=== PATIENT | female | born 1985 | race Caucasian/White ===

== ENCOUNTER 2017-07-23 12:12 | Observation (INO) | payer SELFPAY ==
[2017-07-23 12:15] VITALS: O2SAT 100
--- NOTE | 2017-07-23 12:34 | ED PDOC ---
HPI: Abdomen Time Seen by Provider: 07/23/17 12:19 Chief Complaint (Nursing): Abdominal Pain Chief Complaint (Provider): Abdominal Pain History Per: Patient History/Exam Limitations: no limitations Current Symptoms Are (Timing): Still Present Additional Complaint(s): 32 y/o female presents to the emergency department with a complaint of a lower right-sided abdominal pain with nausea and vomiting since yesterday, 2016. Last menstrual period was 23 days ago. Denies diarrhea, or any urinary symptoms. Past Medical History Reviewed: Historical Data, Nursing Documentation, Vital Signs Vital Signs: Last Vital Signs Temp 96.7 F L 07/23/17 12:13 Pulse 68 07/23/17 12:13 Resp 18 07/23/17 12:13 BP 133/88 07/23/17 12:13 Pulse Ox 100 07/23/17 12:35 - Medical History PMH: Hyperthyroidism, Hypothyroidism - Surgical History Other surgeries: thyroidectomy - Family History Family History: States: Unknown Family Hx - Social History Current smoker - smoking cessation education provided: No Alcohol: None Drugs: Denies - Allergies Allergies/Adverse Reactions: Allergies Allergy/AdvReac Type Severity Reaction Status Date / Time nickel Allergy RASH Verified 07/23/17 12:13 Review of Systems ROS Statement: Except As Marked, All Systems Reviewed And Found Negative Gastrointestinal: Positive for: Nausea, Vomiting, Abdominal Pain. Negative for : Diarrhea Genitourinary Female: Negative for: Dysuria, Frequency, Incontinence, Hematuria Physical Exam - Reviewed Nursing Documentation Reviewed: Yes Vital Signs Reviewed: Yes - Physical Exam Appears: Positive for: Non-toxic, No Acute Distress Head Exam: Positive for: NORMAL INSPECTION, NORMOCEPHALIC Skin: Positive for: Normal Color, Warm, Dry Gastrointestinal/Abdominal: Positive for: Bowel Sounds, Soft, Tenderness (Mild RLQ ). Negative for: Normal Exam, Rebound Neurologic/Psych: Positive for: Alert, Oriented (x3) - Laboratory Results Result Diagrams: 07/23/17 12:35 07/23/17 12:35 - ECG O2 Sat by Pulse Oximetry: 100 (RA) Pulse Ox Interpretation: Normal Medical Decision Making Medical Decision Making: Time:12:27 Initial Impression: Abdominal pain Initial Plan: --Abd & Pelvis IV Contrast CT --CMP --Urine DIP & Preg --CBC w. diff --Reevaluation Scribe Attestation: Documented by Nikki Martinez, acting as a scribe for Brian Johnson MD. Provider Scribe Attestation: All medical record entries made by the Scribe were at my direction and personally dictated by me. I have reviewed the chart and agree that the record accurately reflects my personal performance of the history, physical exam, medical decision making, and the department course for this patient. I have also personally directed, reviewed, and agree with the discharge instructions and disposition. ED OBSERVATION Date of observation admission: 07/23/17 Time of observation admission: 13:00 - Observation admission statement Patient is being placed in observation because:: Abd pain Disposition - Clinical Impression Clinical Impression: Abdominal pain - Patient ED Disposition Is Patient to be Admitted: Transfer of Care - Disposition Disposition: Transfer of Care Disposition Time: 14:59 Condition: FAIR Forms: [facility] (I[place]ic) Patient Signed Over To: Maylin Centeno
[2017-07-23 12:45] LABS: BASO % 0.3 % (0.0-2.0); EOS # 0.2 K/uL (0.0-0.7); EOS % 3.3 % (0.0-4.0); HEMATOCRIT 42.3 % (34.0-47.0); LYMPH # 1.5 K/uL (1.0-4.3); MEAN CELL VOLUME 93.1 fl (81.0-99.0); MEAN CORPUSCULAR HEMOGLOBIN 30.9 pg (27.0-31.0); MEAN CORPUSCULAR HGB CONC 33.2 g/dL (33.0-37.0); MEAN PLATELET VOLUME 9.4 fl (7.2-11.7); MONO # 0.6 K/uL (0.0-0.8); MONO % 8.3 % (0.0-10.0); NEUT # 4.9 K/uL (1.8-7.0); NEUT % 67.1 % (50.0-75.0); WHITE BLOOD COUNT 7.3 K/uL (4.8-10.8)
[2017-07-23 13:08] LABS: ALB/GLOB RATIO 1.4 (1.0-2.1); ALKALINE PHOSPHATASE 47 U/L (38-126); ALT/SGPT 30 U/L (9-52); AST/SGOT 25 U/L (14-36); BILIRUBIN,TOTAL 0.8 mg/dl (0.2-1.3); BLOOD UREA NITROGEN 11 mg/dl (7-17); CALCIUM 9.6 mg/dL (8.4-10.2); CARBON DIOXIDE 28 mmol/L (22-30); CHLORIDE 103 mmol/L (98-107); GFR AFRICAN-AMERICAN > 60; GLUCOSE,RANDOM 94 mg/dL (65-105); POTASSIUM 4.1 MMOL/L (3.6-5.0); SODIUM 144 mmol/l (132-148); TOTAL PROTEIN 7.8 G/DL (6.3-8.2)
[2017-07-23] MEDS ORDERED: Sodium Chloride 0.9% 50 ML IV ONE (13:25)
[2017-07-23] MEDS ORDERED: Iohexol 300 100 ML IJ ONE (13:25)
--- NOTE | 2017-07-23 14:11 | CT ---
PROCEDURE: CT Abdomen and Pelvis with contrast HISTORY: RLQ pain COMPARISON: None. TECHNIQUE: Contrast dose: Omnipaque 300, 95 cc Radiation dose: Total exam DLP = mGy-cm. This CT exam was performed using one or more of the following dose reduction techniques: Automated exposure control, adjustment of the mA and/or kV according to patient size, and/or use of iterative reconstruction technique. FINDINGS: LOWER THORAX: Unremarkable. LIVER: Questionable diffuse fatty infiltration however the enhancement pattern is early arteriovenous limiting the evaluation somewhat. . No gross lesion or ductal dilatation. GALLBLADDER AND BILE DUCTS: Unremarkable. PANCREAS: Unremarkable. No gross lesion or ductal dilatation. SPLEEN: Unremarkable. ADRENALS: Unremarkable. No mass. KIDNEYS AND URETERS: Unremarkable. No hydronephrosis. No solid mass. VASCULATURE: Unremarkable. No aortic aneurysm. BOWEL: Unremarkable. No obstruction. No gross mural thickening. APPENDIX: The appendix is not identified. Into the lack of intraperitoneal fat in this patient and the lack of oral contrast administration, there is difficult to exclude potential appendicitis. PERITONEUM: Unremarkable. No free fluid. No free air. LYMPH NODES: Unremarkable. No enlarged lymph nodes. BLADDER: Unremarkable. REPRODUCTIVE: A lucent lesion is seen at the right side of the uterine fundus measuring 2.8 x 2.7 cm with trace fluid seen in the cul-de-sac and the dependent right adnexal compartment. BONES: No acute fracture. OTHER FINDINGS: None. IMPRESSION: 1. Appendix not confidently seen in this patient with no oral contrast administered and lack of intraperitoneal fat. Appendicitis therefore is not completely excluded. Further clinical correlation is advised. Consider repeat CT with oral contrast and significant delay following oral contrast ingestion. 2. Borderline diffuse fatty infiltration liver. 3. Trace cul-de-sac fluid. A 2.8 cm lucency seen the right uterine fundus potentially representing a fibroid. Complex is also possible. This appears to be separate from the endometrial cavity. Ultrasound follow-up may be useful.
[2017-07-23] MEDS ORDERED: Iohexol 240 (50 ml) PO ONE (14:16)
[2017-07-23] MEDS ORDERED: Sodium Chloride 0.9% 1,000 ML IV STA (14:19)
[2017-07-23] MEDS ORDERED: Iohexol 240 (50 ml) ONE (14:58)
--- NOTE | 2017-07-23 15:24 | ED PDOC ---
- Laboratory Results Result Diagrams: 07/23/17 12:35 07/23/17 12:35 - ECG O2 Sat by Pulse Oximetry: 100 (RA) Pulse Ox Interpretation: Normal Medical Decision Making Medical Decision Making: Patient endorsed to provider from Dr. Johnson at 1500 pending ED workup, reassessment and final disposition. Any further updates will be documented int he ED observation section of this chart. Scribe Attestation Documented by Esther Lundberg acting as a scribe for Maylin Centeno MD. Provider Attestation All medical record entries made by the Scribe were at my direction and personally dictated by me. I have reviewed the chart and agree that the record accurately reflects my personal performance of the history, physical exam, medical decision making, and the department course for this patient. I have also personally directed, reviewed, and agree with the discharge instructions and disposition. Disposition Counseled Patient/Family Regarding: Studies Performed, Diagnosis, Need For Followup - Clinical Impression Clinical Impression: Abdominal pain, Fibroid, Peritoneal cyst - POA Present On Arrival: None - Disposition Disposition: Routine/Home Disposition Time: 13:00 Condition: GOOD ED OBSERVATION Date of observation admission: 07/23/17 Time of observation admission: 13:00 - Observation admission statement Patient is being placed in observation because:: Abdominal pain - Progress Note Progress Note: 07/23/17 15:23 Patient is comfortable at this tome pending CT scan and US. 07/23/17 1624 Ultrasound Transvaginal Dictated by: Adam Rossi MD Findings: Uterus: measures 7.7 x 3.9 x 5.7cm Right sided fundal fibroid, 2.6 x 2.6 x 3.3cm Endometrium: Mesures 6mm in diameter. Unremarkable Cervix: No cervical abnormality identified. Right Ovary: Measures 1.7 x 2.6 3.6cm. No solid mass. Normal flow. Left Ovary: Measures 2.0 x 2.9 x 3.2cm. No solid mass. Normal flow. Free Fluid: Trace free fluid Other findings: None Impression: 3.3cm uterine fibroid. Otherwise unremarkable. EXAM: CT Abdomen and Pelvis With Intravenous Contrast EXAM DATE/TIME: 07/23/2017 CLINICAL HISTORY: Pain; Abdominal pain; Flank; Right lower quadrant (rlq); Additional info: Rlq pain TECHNIQUE: Axial computed tomography images of the abdomen and pelvis with intravenous contrast. Oral contrast was administered. All CT scans at this facility use one or more dose reduction techniques, viz.: automated exposure control; ma/kV adjustment per patient size (including targeted exams where dose is matched to indication; i.e. head); or iterative reconstruction technique. Coronal and sagittal reformatted images were created and reviewed. CONTRAST: 5 mL of po administered intravenously. COMPARISON: Printed reports from CT Abdomen/Pelvis with IV contrast 07/23/2017 and US Pelvis 07/23/2017. FINDINGS: Lower thorax: No pulmonary airspace consolidation or pleural fluid collection in the imaged portion of the thorax. ABDOMEN: Liver: No acute findings. The liver parenchyma is normal in attenuation without evidence of fatty infiltration as was queried on the comparison CT. Gallbladder and bile ducts: No acute findings. No radiopaque gallstones. Pancreas: No acute findings. Spleen: No acute findings. Adrenals: No acute findings. Kidneys and ureters: No acute findings. There is excreted IV contrast material in both renal collecting systems and both ureters. Stomach and bowel: No evident acute abnormality of the stomach or small bowel. Moderate amount of gas and stool in the colon. No colonic wall thickening or pericolonic fat stranding. Appendix: Normal contrast-filled appendix. PELVIS: Bladder: The bladder is mildly distended with excreted IV contrast material but is otherwise normal in appearance. Reproductive: No evident acute abnormality of the gynecologic structures. ABDOMEN and PELVIS: Intraperitoneal space: No free intraperitoneal air. Small amount of free fluid in the posterior cul-desac that measures simple fluid attenuation but is greater in volume than typically seen as physiologic fluid. 2.2 x 1.9 x 1.5 cm smoothly marginated fluid attenuation lesion in the low anterior right hemipelvis (series 2, image 79; series 601, image 22), not mentioned in the prior reports. Bones/joints: No acute findings. Soft tissues: No acute findings. Vasculature: No acute findings. Lymph nodes: No acute findings. IMPRESSION: 1. Normal appendix. 2. A small amount of free fluid in the posterior cul-de-sac measures simple fluid attenuation but is greater in volume than typically seen as physiologic fluid. The fluid is otherwise nonspecific. The reports from the CT and ultrasound from earlier today describe only a trace amount of pelvic free fluid. The prior CT images have been requested for direct comparison. If the images are received, an addendum to this report will be provided. 3. A 2.2 cm fluid attenuation lesion in the low anterior right hemipelvis is incompletely characterized but most likely to be a benign peritoneal cyst. The lesion is remote from the ovaries and uterus. 4. Moderate amount of gas and stool in the colon. Thank you for allowing us to participate in the care of your patient. Dictated and Authenticated by: Shantal Martinez MD 07/23/2017 7:18 PM Eastern Time ([place] & [place]) Addendum created by Shnatal Martinez MD on 07/23/2017 7:59 PM Eastern Time ([place] & [place]) The CT Abdomen/Pelvis from earlier today is now received for comparison. The volume of free fluid in the posterior cul-de-sac on the current examination is unchanged from the prior study. As indicated previously, the fluid is greater in volume than typically seen as physiologic fluid but is otherwise nonspecific. The 2.2 cm fluid attenuation lesion in the low anterior right hemipelvis demonstrates no enhancement on the prior contrast-enhanced CT, consistent with a benign cyst. DW pt findings and plan of care. Exam benign on reexam. Pt stable for discharge and left with family in good spirits.
--- NOTE | 2017-07-23 16:26 | US ---
HISTORY: RLQ pain COMPARISON: None available. TECHNIQUE: Transvaginal FINDINGS: UTERUS: Measures 7.7 x 3.9 x 5.7 cm. Right-sided fundal fibroid, 2.6 x 2.6 x 3.3 cm. ENDOMETRIUM: Measures 6 mm in diameter. Unremarkable. CERVIX: No cervical abnormality identified. RIGHT OVARY: Measures 1.7 x 2.6 x 3.6 cm. No solid mass. Normal flow. LEFT OVARY: Measures 2.0 x 2.9 x 3.2 cm. No solid mass. Normal flow. FREE FLUID: Trace free fluid OTHER FINDINGS: None. IMPRESSION: 3.3 cm fundal uterine fibroid. Otherwise unremarkable.
[2017-07-23 17:49] VITALS: BP 125/77; PULSE 61; RESP 16; TEMP 98.3
--- NOTE | 2017-07-24 08:28 | CT ---
PROCEDURE: CT Abdomen and Pelvis with contrast HISTORY: RLQ pain COMPARISON: Prior CT examination 07/23/2017 1:36 p.m.. TECHNIQUE: Helical CT of the abdomen and pelvis was performed with oral contrast only as per referring physician request. Contrast dose: None Radiation dose: Total exam DLP = 286.42 mGy-cm. This CT exam was performed using one or more of the following dose reduction techniques: Automated exposure control, adjustment of the mA and/or kV according to patient size, and/or use of iterative reconstruction technique. FINDINGS: LOWER THORAX: Unremarkable. LIVER: Unremarkable. No gross lesion or ductal dilatation. GALLBLADDER AND BILE DUCTS: Unremarkable. PANCREAS: Unremarkable. No gross lesion or ductal dilatation. SPLEEN: Unremarkable. ADRENALS: Unremarkable. No mass. KIDNEYS AND URETERS: Unremarkable. No hydronephrosis. No solid mass. VASCULATURE: Unremarkable. No aortic aneurysm. BOWEL: Unremarkable. No obstruction. No gross mural thickening. APPENDIX: Normal appendix. Now identified filled with oral contrast material. PERITONEUM: Unremarkable. No free fluid. No free air. LYMPH NODES: Unremarkable. No enlarged lymph nodes. BLADDER: Unremarkable. REPRODUCTIVE: A mild amount of fluid is seen the cul-de-sac which is not simply changed in the interval. There is also small fluid collection seen intra lateral to the urinary bladder measuring 2.2 cm greatest dimension potentially representing a perineal cyst or possible urinary bladder diverticulum. . BONES: No acute fracture. OTHER FINDINGS: None. IMPRESSION: 1. No CT evidence to suggest appendicitis at this time. 2. Stable limited fluid in the cul-de-sac as well as a 2.2 cm perineal cyst or urinary bladder diverticulum to the right of the urinary bladder. Concordant report from [facility], 07/23/2017.
== END 2017-07-23 20:16 | disposition home or self-care (01) ==
LOC: H.ER 12:12 → H.EROBSV 13:00
PROVIDERS: ADMIT Emergency Medicine; ATTEND Emergency Medicine
DX: R10.31 Right lower quadrant pain (principal); K66.8 Other specified disorders of peritoneum; D25.9 Leiomyoma of uterus, unspecified; E03.9 Hypothyroidism, unspecified
CPT/HCPCS: 74176; 74177; 76830; 80053; 81025; 85025; 96361; 96374; 99285; G0378; J1885; J7040; Q9966; Q9967